=== PATIENT | female | born 1970 | race African-American/Black ===

== ENCOUNTER 2018-11-01 13:24 | Emergency (ER) | payer SELFPAY ==
[~2018-11-01] VITALS: Ht 165.1 cm; Wt 93.6 kg
[2018-11-01 13:30] VITALS: Ht 165.1 cm; Wt 93.6 kg
[2018-11-01] MEDS ORDERED: COREG12.5 MG PO (13:33)
[2018-11-01] MEDS ORDERED: ALTACE10 MG PO (13:34)
[2018-11-01] MEDS ORDERED: ZOCOR20 MG PO (13:34)
[2018-11-01] MEDS ORDERED: CARDURA2 MG PO (13:34)
[2018-11-01] MEDS ORDERED: CHLORTHALIDONE25 MG PO (13:35)
[2018-11-01] MEDS ORDERED: BAYER CHEWABLE81 MG PO (13:35)
[2018-11-01] MEDS ORDERED: HYDROCODON-ACE1 EAC7 PO (15:45)
[2018-11-01] MEDS ORDERED: ERYTHROMYCIN OPT1 GM RIGHT EYE (15:45)
[2018-11-01 16:01] VITALS: BP 164/91
== END 2018-11-01 16:24 | disposition home or self-care (01) ==
LOC: D.ER 13:24
DX: S05.01XA Injury of conjunctiva and corneal abrasion without foreign body, right eye, initial encounter (principal); X58.XXXA Exposure to other specified factors, initial encounter; Y93.89 Activity, other specified; Y92.019 Unspecified place in single-family (private) house as the place of occurrence of the external cause; S05.8X1A Other injuries of right eye and orbit, initial encounter